=== PATIENT | female | born 1995 | race Two or more races ===

== ENCOUNTER 2021-10-29 19:15 | Inpatient (IN) | payer OTHER ==
[2021-10-29] MEDS ORDERED: DINOPROSTONE 10 MG VAGINAL SUPPOSITORY VG ONE (20:30)
[2021-10-29 20:50] VITALS: BMI 42.7
[2021-10-30] MEDS ORDERED: ZOLPIDEM TARTRATE 5 MG TABLET ONE (00:08)
[2021-10-30] MEDS ORDERED: ZOLPIDEM TARTRATE 5 MG TABLET PO ONE (00:15)
[2021-10-30] MEDS ORDERED: OXYTOCIN 30 UNITS in 0.9% NS 30 UNIT/500 ML INFUS.BAG IVPB ONE (09:19)
[2021-10-30] MEDS ORDERED: AMPICILLIN - 2 GM in SODIUM CHLORIDE 100 ML IVPB ONE (09:49)
[2021-10-30] MEDS ORDERED: ELECTROLYTE-148 SOLN 1,000 ML IV SCH (10:00)
[2021-10-30] MEDS ORDERED: OXYTOCIN 30 UNITS in 0.9% NS 30 UNIT/500 ML INFUS.BAG IVPB SCH (10:00)
[2021-10-30] MEDS ORDERED: AMPICILLIN SODIUM 2 GM VIAL ONE (11:59)
[2021-10-30] MEDS ORDERED: FENTANYL/BUPIVACAINE/NS/PF - PCEA - 50 ML DISP.SYRIN EP ONE ×2 (14:24→19:25)
[2021-10-30] MEDS: FENTANYL/BUPIVACAINE/NS/PF - PCEA - 50 ML DISP.SYRIN EP SCH ×2 (15:02→19:32)
[2021-10-30] MEDS ORDERED: NALOXONE HCL 0.4 MG/ML VIAL IVPUSH PRN (15:15)
[2021-10-30] MEDS: AMPICILLIN - 1 GM in SODIUM CHLORIDE 100 ML IVPB SCH ×3 (16:05→21:55)
[2021-10-30] MEDS ORDERED: AMPICILLIN SODIUM 1 GM VIAL ONE ×2 (16:05→19:25)
[2021-10-30] MEDS ORDERED: OXYTOCIN 20 UNITS in 0.9% NS 20 UNIT/1,000 ML INFUS.BAG IV ONE (20:00)
[2021-10-30] MEDS ORDERED: LIDOCAINE HCL 1% PRESERVATIVE FREE - 30ML VIAL ONE (20:00)
[2021-10-30] MEDS ORDERED: METHYLERGONOVINE MALEATE 0.2 MG/1 ML AMP IM PRN (21:22)
[2021-10-30] MEDS ORDERED: ACETAMINOPHEN 325 MG TABLET (FP) PO PRN (21:22)
[2021-10-30] MEDS ORDERED: oxyCODONE HCL 5 MG TABLET PO PRN (21:22)
[2021-10-30] MEDS ORDERED: BENZOCAINE 20% 57 GM BOTTLE TP PRN (21:22)
[2021-10-30] MEDS ORDERED: IBUPROFEN 600 MG TABLET (FP) PO PRN (21:22)
[2021-10-30] MEDS ORDERED: BENZOCAINE 28 GM HEMORRHOIDAL OINTMENT TP PRN (21:22)
[2021-10-30] MEDS ORDERED: BISACODYL 10 MG SUPP.RECT RC PRN (21:22)
[2021-10-30] MEDS ORDERED: WITCH HAZEL 50% (TUCKS) 40 PAD/JAR PAD TP PRN (21:22)
[2021-10-30] MEDS ORDERED: OXYTOCIN 20 UNITS in 0.9% NS 20 UNIT/1,000 ML INFUS.BAG IV SCH (21:30)
[2021-10-31 07:32] LABS: BASO % 0.1 % (0-2.0); EOS % 0.9 % (0-4.5); HEMATOCRIT 28.2 % (32.4-45.2); HEMOGLOBIN 9.2 GM/dL (10.7-15.3); LYMPH % 14.3 % (8-40); MCH 27.5 pg (25.7-33.7); MCHC 32.6 g/dl (32.0-36.0); MEAN CELL VOLUME 84.4 fl (80-96); MEAN PLT VOLUME 11.7 fl (7.5-11.1); MONO % 10.6 % (3.8-10.2); NEUT % 74.1 % (42.8-82.8); PLATELET COUNT 108 10^3/uL (134-434); RBC 3.34 M/mm3 (3.60-5.2); WHITE BLOOD COUNT 11.9 K/mm3 (4.0-10.0)
[2021-10-31 09:37] LABS: POC NITRAZINE POS
[2021-10-31 17:49] VITALS: BP 108/73; PULSE 91; TEMP 98.1
[2021-10-31] MEDS ORDERED: SENNOSIDES/DOCUSATE COMBO (SENNA PLUS) TABLET (UD) PO PRN (22:00)
== END 2021-10-31 18:47 | disposition home or self-care (01) | DRG 768 ==
LOC: JLDR 19:15 → J3W 10-30 23:00
PROVIDERS: ADMIT Specialist; ATTEND Specialist
PROC: 10E0XZZ Delivery of Products of Conception, External Approach (ICD-10-PCS; principal; 2021-10-30)
PROC: 0UQJXZZ Repair Clitoris, External Approach (ICD-10-PCS; 2021-10-30)
PROC: 3E0P7VZ Introduction of Hormone into Female Reproductive, Via Natural or Artificial Opening (ICD-10-PCS; 2021-10-30)
PROC: 3E033VJ Introduction of Other Hormone into Peripheral Vein, Percutaneous Approach (ICD-10-PCS; 2021-10-30)
PROC: 0HQ9XZZ Repair Perineum Skin, External Approach (ICD-10-PCS; 2021-10-30)
DX: O99.824 Streptococcus B carrier state complicating childbirth (principal); Z37.0 Single live birth; O99.214 Obesity complicating childbirth; E66.01 Morbid (severe) obesity due to excess calories; O71.4 Obstetric high vaginal laceration alone; O71.89 Other specified obstetric trauma; Z3A.39 39 weeks gestation of pregnancy
CPT/HCPCS: 36415; 59409; 83986-QW; 85025